=== PATIENT | female | born 1980 ===

== ENCOUNTER 2022-10-19 09:39 | Outpatient (CLI) | payer OTHER | END 2022-10-19 09:52 | disposition home or self-care (01) | LOC: RX STUDY 09:39 | DX: N84.0 Polyp of corpus uteri (principal); N73.6 Female pelvic peritoneal adhesions (postinfective) ==

== ENCOUNTER → 2023-10-14 | Outpatient (CLI) | payer OTHER | END | disposition home or self-care (01) | LOC: SONOGRAMA 08:54 | DX: N84.1 Polyp of cervix uteri (principal); N80.9 Endometriosis, unspecified ==